=== PATIENT | female | born 1985 | race Two or more races ===

== ENCOUNTER 2017-12-07 18:07 | Emergency (ER) | payer OTHER ==
[~2017-12-07] VITALS: Ht 165.1 cm; Wt 54.4 kg
[2017-12-07 18:07] VITALS: BP 135/89
[2017-12-07] MEDS ORDERED: IBUPROFEN 600 MG TABLET PO ONE ×2 (18:47→19:00)
== END 2017-12-07 19:56 | disposition home or self-care (01) ==
LOC: ER 18:11
DX: S63.502A Unspecified sprain of left wrist, initial encounter (principal); M81.0 Age-related osteoporosis without current pathological fracture; W18.31XA Fall on same level due to stepping on an object, initial encounter; Y93.89 Activity, other specified; Y92.89 Other specified places as the place of occurrence of the external cause; Y99.8 Other external cause status
CPT/HCPCS: 73110; A4606; Z7610